=== PATIENT | female | born 1975 | race African-American/Black ===

== ENCOUNTER 2017-07-13 10:28 | Inpatient (IN) | payer OTHER ==
[2017-07-13 11:12] VITALS: BMI 43.7
--- NOTE | 2017-07-13 12:25 | HP ---
COWS - Scale Resting Pulse: 1= ID [id number] Sweatin= Chills/Flushing Restless Observation: 1= Difficult to Sit Still Pupil Size: 0= Normal to Room Light Bone or Joint Aches: 1= Mild Discomfort Runny Nose/ Eye Tearin= Nasal Congestion GI Upset > 30mins: 1= Stomach Cramp Tremor Observation: 1= Tremor [place], Not Seen Yawning Observation: 1= 1-2x During Session Anxiety or Irritability: 1=Feels Anxious/Irritable Goose Flesh Skin: 0=Smooth Skin COWS Score: 9 Admission ROS S - HPI Chief Complaint: I want to be jumpstarted off the meds Allergies/Adverse Reactions: Allergies Allergy/AdvReac Type Severity Reaction Status Date / Time Penicillins Allergy Severe Hives Verified 07/13/17 11:46 History of Present Illness: 41 yo woman here for detox from opiates, also some use of alcohol, cocaine, marijuana but states she just started with the heroin and wants to get off it right away - trying to get a job but marijuana in her system disqualified her. No seizures, previous detox and rehab 2010. Stayed clean for years but off and on relapsed. Exam Limitations: Clinical Condition - Ebola screening Have you traveled outside of the country in the last 21 days: No Have you had contact with anyone from an Ebola affected area: No Have you been sick,other than usual withdrawal symptoms: No Do you have a fever: No - Review of Systems Constitutional: Loss of Appetite, Changes in sleep EENT: reports: Blurred Vision, Nose Congestion Respiratory: reports: No Symptoms reported Cardiac: reports: No Symptoms Reported GI: reports: Nausea, Abdominal cramping : reports: Dysuria Musculoskeletal: reports: Back Pain, Muscle Pain Integumentary: reports: No Symptoms Reported Neuro: reports: Headache Endocrine: reports: No Symptoms Reported Hematology: reports: No Symptoms Reported Psychiatric: reports: Judgement Intact, Mood/Affect Appropiate, Orientated x3, Anxious Other Systems: Reviewed and Negative Patient History - Patient Medical History Hx Asthma: Yes Hx Chronic Obstructive Pulmonary Disease (COPD): No Hx Cancer: No Hx Cardiac Disorders: No Hx Hypertension: No Hx Hypercholesterolemia: No Hx Pacemaker: No HX Cerebrovascular Accident: No Hx Seizures: No Hx Diabetes: No Hx Gastrointestinal Disorders: No Hx Liver Disease: No Hx Genitourinary Disorders: No Hx Sexually Transmitted Disorders: No Hx Renal Disease (ESRD): No Hx Human Immunodeficiency Virus (HIV): No Hx Hepatitis C: No Hx Depression: Yes (hospitalized once, on meds) Hx Suicide Attempt: Yes (years ago) Hx Bipolar Disorder: No Hx Schizophrenia: No - Patient Surgical History Past Surgical History: Yes Hx Abdominal Surgery: Yes (removed gallbladder) Other Surgical History: Hernia repair 11/2016 Anesthesia Reaction: No - PPD History Previous Implant?: Yes Documented Results: Negative w/o proof Implanted On Prior R Admission?: No PPD to be Administered?: Yes - Reproductive History Patient is a Female of Child Bearing Age (11 -55 yrs old): Yes Last Menstrual Period: 06/21/17 Patient : No - Smoking Cessation Smoking history: Current every day smoker Have you smoked in the past 12 months: Yes Aproximately how many cigarettes per day: 20 Initiated information on smoking cessation: Yes 'Breaking Loose' booklet given: 07/13/17 (give on floor) - Substance & Tx. History Hx Alcohol Use: Yes Hx Substance Use: Yes Substance Use Type: Cocaine, Heroin, Marijuana Hx Substance Use Treatment: Yes - Substances Abused Heroin Route: Inhalation Frequency: 3-6 times per week Amount used: 1-2 bags Age of first use: 40 Date of Last Use: 07/12/17 Cocaine Route: Smoking Frequency: 3-6 times per week Amount used: 3-4 bag Age of first use: 16 Date of Last Use: 07/12/17 Alcohol Route: Oral Frequency: 1-2 times per week Amount used: three 22 oz beers Age of first use: 11 Date of Last Use: 07/12/17 Marijuana/Hashish Route: Smoking Frequency: 1-2 times per week Amount used: 1 bag Age of first use: 11 Date of Last Use: 07/12/17 Family Disease History - Family Disease History Family Disease History: Other: Father (, ulcers, ), Mother (, etoh, cirrhosis), Brother (two, living,healthy ), Sister (one, htn, etoh, cirrhosis), Daughter (age 15 , sleep apnea) Admission Physical Exam BHS - Vital Signs Vital Signs: Vital Signs - 24 hr 07/13/17 11:09 Temperature 96.9 F L Pulse Rate 90 Respiratory 20 Rate Blood Pressure 132/82 - Physical General Appearance: Yes: Nourished, Appropriately Dressed, Mild Distress, Obese , Anxious HEENTM: Yes: Hearing grossly Normal, Normocephalic, Normal Voice, Pharynx Normal , Rhinorrhea Respiratory: Yes: Normal Breath Sounds, No Respiratory Distress Neck: Yes: No masses,lesions,Nodules, Supple Breast: Yes: Breast Exam Deferred Cardiology: Yes: Regular Rhythm, Regular Rate Abdominal: Yes: Soft, Protuberent Genitourinary: Yes: Within Normal Limits Back: Yes: Normal Inspection Musculoskeletal: Yes: Back pain, Muscle Pain Extremities: Yes: Normal Inspection, Normal Range of Motion Neurological: Yes: Fully Oriented, Alert, Normal Mood/Affect, Normal Response Integumentary: Yes: Normal Color, Warm Lymphatic: Yes: Within Normal Limits - Diagnostic (1) Uncomplicated opioid dependence Current Visit: Yes Status: Chronic (2) Alcohol abuse Current Visit: Yes Status: Chronic (3) Cocaine dependence Current Visit: Yes Status: Acute Qualifiers: Substance use status: uncomplicated Qualified Code(s): F14.20 - Cocaine dependence, uncomplicated (4) Nicotine dependence Current Visit: Yes Status: Chronic Qualifiers: Nicotine product type: cigarettes Substance use status: uncomplicated Qualified Code(s): F17.210 - Nicotine dependence, cigarettes, uncomplicated (5) Asthma Current Visit: Yes Status: Chronic Qualifiers: Asthma severity: mild intermittent Asthma complication type: uncomplicated Qualified Code(s): J45.20 - Mild intermittent asthma, uncomplicated (6) Marijuana dependence Current Visit: Yes Status: Chronic (7) Obesity, Class III, BMI 40-49.9 (morbid obesity) Current Visit: Yes Status: Chronic Cleared for Admission S - Detox or Rehab [facility] Level of Care: Medically Managed Detox Regimen/Protocol: Methadone [facility] Breath Alcohol Content Breath Alcohol Content: 0 Urine Pregancy Test - Result Urine Test Results: Negative- NO Line Present Urine Drug Screen - Results Drug Screen Negative: No Urine Drug Screen Results: THC-Marijuana, LIBIA-Cocaine, OPI-Opiates
[2017-07-13] MEDS ORDERED: P-EPHED 60MG/TRIPROLIDI 2.5MG TABLET PO PRN (12:33)
[2017-07-13] MEDS ORDERED: guaiFENesin/D-METHORPHAN HB 10 ML UNIT-DOSE CUPS PO PRN (12:33)
[2017-07-13] MEDS ORDERED: MAGNESIUM CITRATE 300 ML BOTTLE PO PRN (12:33)
[2017-07-13] MEDS ORDERED: IBUPROFEN 400 MG TABLET (FP) PO PRN (12:33)
[2017-07-13] MEDS ORDERED: MAG HYDROX/AL HYDROX/SIMETH 30 ML UNIT-DOSE CUP PO PRN (12:33)
[2017-07-13] MEDS ORDERED: hydrOXYzine PAMOATE 50 MG CAPSULE (FP) PO PRN (12:33)
[2017-07-13] MEDS ORDERED: LOPERAMIDE HCL 2 MG CAPSULE PO PRN (12:33)
[2017-07-13] MEDS ORDERED: ACETAMINOPHEN 325 MG TABLET (FP) PO PRN (12:33)
[2017-07-13] MEDS ORDERED: MAGNESIUM HYDROX 2400MG/30ML ORAL SUSPENSION 30 ML CUP PO PRN (12:33)
[2017-07-13] MEDS ORDERED: MENTHOL/PHENOL 1 EACH UD MM PRN (12:33)
[2017-07-13] MEDS ORDERED: METHADONE HCL 10 MG TABLET (FOR DETOX USE ONLY) PO ONE (13:15)
[2017-07-13] MEDS: diazePAM 5 MG TABLET PO PRN ×3 (14:05→22:29)
[2017-07-13] MEDS: NICOTINE 21 MG/24 HOURS TOPICAL PATCH TD SCH ×2 (14:06→18:19)
[2017-07-13 17:32] LABS: URINE APPEARANCE SLCLOUDY; URINE BILIRUBIN NEGATIVE (NEGATIVE); URINE BLOOD 1+ (NEGATIVE); URINE COLOR YELLOW; URINE GLUCOSE (UA) NEGATIVE (NEGATIVE); URINE KETONE NEGATIVE (NEGATIVE); URINE LEUK ESTERASE NEGATIVE (NEGATIVE); URINE NITRITE NEGATIVE (NEGATIVE); URINE PROTEIN NEGATIVE (NEGATIVE); URINE UROBILINOGEN NEGATIVE mg/dL (0.2-1.0)
[2017-07-13 17:42] LABS: URINE MUCUS RARE; URINE RBC 9 /hpf (0-3); URINE WBC <1 /hpf (3-5)
[2017-07-13] MEDS: diphenhydrAMINE HCL 50 MG CAPSULE PO PRN (22:29)
[2017-07-13] MEDS: THIAMINE HCL 100 MG TABLET (FP) PO SCH (22:29)
[2017-07-14] MEDS ORDERED: METHADONE HCL 10 MG TABLET (FOR DETOX USE ONLY) PO ONE (10:00)
[2017-07-14 10:30] LABS: ALBUMIN 3.2 g/dl (3.4-5.0); ALK PHOS 57 U/L (45-117); ANION GAP 9 (8-16); BILIRUBIN,TOTAL 0.2 mg/dL (0.2-1.0); CALCIUM 8.8 mg/dL (8.5-10.1); CO2 25 mmol/L (21-32); CREATININE 0.7 mg/dL (0.55-1.02); GLUCOSE,RANDOM 114 mg/dL (74-106); SGOT/AST 10 U/L (15-37); SGPT/ALT 21 U/L (12-78); TOT PROT 6.8 g/dl (6.4-8.2)
[2017-07-14] MEDS: NICOTINE 21 MG/24 HOURS TOPICAL PATCH TD SCH ×2 (10:34→12:19)
[2017-07-14] MEDS: PRENATAL VITAMINS W/ FOLIC ACID TABLET (FP) PO SCH (10:34)
[2017-07-14] MEDS: diazePAM 5 MG TABLET PO PRN ×3 (10:36→22:16)
[2017-07-14 10:58] LABS: MCH 29.2 pg (25.7-33.7); MCHC 32.2 g/dl (32.0-36.0); MEAN CELL VOLUME 90.6 fl (80-96); MEAN PLT VOLUME 8.2 fl (7.5-11.1); PLATELET COUNT 354 K/MM3 (134-434); WHITE BLOOD COUNT 7.3 K/mm3 (4.0-10.0)
--- NOTE | 2017-07-14 13:57 | EKG ---
Test Reason : Blood Pressure : / mmHG Vent. Rate : 089 BPM Atrial Rate : 089 BPM P-R Int : 152 ms QRS Dur : 080 ms QT Int : 360 ms P-R-T Axes : 065 011 051 degrees QTc Int : 438 ms NORMAL SINUS RHYTHM NORMAL ECG NO PREVIOUS ECGS AVAILABLE Confirmed by SUJATHA ALDRICH, MICHELINE ([id number]) on 07/14/2017 1:56:36 PM Referred By: Confirmed By:MICHELINE SOLARES MD
--- NOTE | 2017-07-14 17:16 | PN ---
BHS COWS - Scale Resting Pulse: 2= [place] 101-120 Sweatin=Flushed/Facial Moisture Restless Observation: 1= Difficult to Sit Still Pupil Size: 0= Normal to Room Light Bone or Joint Aches: 1= Mild Discomfort Runny Nose/ Eye Tearin= Runny Nose/Eyes GI Upset > 30mins: 2= Nausea/Diarrhea Tremor Observation of Outstretched Hands: 2= Slight Tremor Visible Yawning Observation: 0= None Anxiety or Irritability: 2=Irritable/Anxious Goose Flesh Skin: 0=Smooth Skin COWS Score: 14 BHS Progress Note (SOAP) Subjective: Anxiety,sweating,body aches,restless Objective: 07/14/17 17:15 Last Vital Signs Temp Pulse Resp BP Pulse Ox 99 F 107 H 18 141/90 07/14/17 14:41 07/14/17 14:41 07/14/17 14:41 07/14/17 14:41 Laboratory Last Values WBC 7.3 K/mm3 (4.0-10.0) 07/14/17 08:00 RBC 4.32 M/mm3 (3.60-5.2) 07/14/17 08:00 Hgb 12.6 GM/dL (10.7-15.3) 07/14/17 08:00 Hct 39.2 % (32.4-45.2) 07/14/17 08:00 MCV 90.6 fl (80-96) 07/14/17 08:00 MCH 29.2 pg (25.7-33.7) 07/14/17 08:00 MCHC 32.2 g/dl (32.0-36.0) 07/14/17 08:00 RDW 15.0 % (11.6-15.6) 07/14/17 08:00 Plt Count 354 K/MM3 (134-434) 07/14/17 08:00 MPV 8.2 fl (7.5-11.1) 07/14/17 08:00 Sodium 137 mmol/L (136-145) 07/14/17 08:00 Potassium 4.7 mmol/L (3.5-5.1) 07/14/17 08:00 Chloride 103 mmol/L (98-107) 07/14/17 08:00 Carbon Dioxide 25 mmol/L (21-32) 07/14/17 08:00 Anion Gap 9 (8-16) 07/14/17 08:00 BUN 10 mg/dL (7-18) 07/14/17 08:00 Creatinine 0.7 mg/dL (0.55-1.02) 07/14/17 08:00 Creat Clearance w eGFR > 60 (>60) 07/14/17 08:00 Random Glucose 114 mg/dL (74-106) H 07/14/17 08:00 Calcium 8.8 mg/dL (8.5-10.1) 07/14/17 08:00 Total Bilirubin 0.2 mg/dL (0.2-1.0) 07/14/17 08:00 AST 10 U/L (15-37) L 07/14/17 08:00 ALT 21 U/L (12-78) 07/14/17 08:00 Alkaline Phosphatase 57 U/L (45-117) 07/14/17 08:00 Total Protein 6.8 g/dl (6.4-8.2) 07/14/17 08:00 Albumin 3.2 g/dl (3.4-5.0) L 07/14/17 08:00 Urine Color Yellow 07/13/17 15:25 Urine Appearance Slcloudy 07/13/17 15:25 Urine pH 6.0 (5.0-8.0) 07/13/17 15:25 Ur Specific [place] 1.020 (1.005-1.025) 07/13/17 15:25 Urine Protein Negative (NEGATIVE) 07/13/17 15:25 Urine Glucose (UA) Negative (NEGATIVE) 07/13/17 15:25 Urine Ketones Negative (NEGATIVE) 07/13/17 15:25 Urine Blood 1+ (NEGATIVE) H 07/13/17 15:25 Urine Nitrite Negative (NEGATIVE) 07/13/17 15:25 Urine Bilirubin Negative (NEGATIVE) 07/13/17 15:25 Urine Urobilinogen Negative mg/dL (0.2-1.0) 07/13/17 15:25 Ur Leukocyte Esterase Negative (NEGATIVE) 07/13/17 15:25 Urine RBC 9 /hpf (0-3) 07/13/17 15:25 Urine WBC <1 /hpf (3-5) 07/13/17 15:25 Ur Epithelial Cells Moderate /hpf (FEW) 07/13/17 15:25 Urine Mucus Rare 07/13/17 15:25 RPR Titer Nonreactive (NONREACTIVE) 07/14/17 08:00 labs noted Assessment: 07/14/17 17:16 withdrawal sx. Plan: Continue detox
[2017-07-14] MEDS: diphenhydrAMINE HCL 50 MG CAPSULE PO PRN (22:16)
[2017-07-14] MEDS: THIAMINE HCL 100 MG TABLET (FP) PO SCH (22:16)
[2017-07-14] MEDS: ALBUTEROL SO4 6.7 GM HFA INHALER IH PRN (22:18)
--- NOTE | 2017-07-15 09:39 | CONSULT ---
[facility] Psychiatric Consult - Data Date of interview: 07/15/17 Admission source: [facility] Identifying data: This is 41 years old female with history of no psychiatric hospitalization history intoxicated with: Alcohol, Cocaine. Cannabis and Opioids Substance Abuse History: - Smoking Cessation. Smoking history: Current every day smoker. Have you smoked in the past 12 months: Yes. Aproximately how many cigarettes per day: 20. Initiated information on smoking cessation: Yes. ' Breaking Loose' booklet given: 07/13/17 (give on floor). - Substance & Tx. History. Hx Alcohol Use: Yes. Hx Substance Use: Yes. Substance Use Type: Cocaine, Heroin, Marijuana. Hx Substance Use Treatment: Yes. - Substances Abused. Heroin. Route: Inhalation. Frequency: 3-6 times per week. Amount used: 1-2 bags. Age of first use: 40. Date of Last Use: 07/12/17. Cocaine. Route: Smoking. Frequency: 3-6 times per week. Amount used: 3-4 bag. Age of first use: 16. Date of Last Use: 07/12/17. Alcohol. Route: Oral. Frequency: 1-2 times per week. Amount used: three 22 oz beers. Age of first use: 11. Date of Last Use: 07/12/17. Marijuana/Hashish. Route: Smoking. Frequency: 1-2 times per week. Amount used: 1 bag. Age of first use : 11. Date of Last Use: 07/12/17 Medical History: Asthma, Obesity Psychiatric History: Patient reports hbistory of anxitory, depression and insomnia, reports taking prior to admission: Wellbutrin 50mg poqd. Rispedal 1mg po bid. Ambien 10mg po qhs Physical/Sexual Abuse/Trauma History: Denies Additional Comment: Wellbutrin 50mg poqd. Rispedal 1mg po bid. Ambien 10mg po qhs Mental Status Exam - Mental Status Exam Alert and Oriented to: Person Cognitive Function: Fair Patient Appearance: Unkempt Mood: Anxious Affect: Mood Congruent Patient Behavior: Guarded, Cooperative Speech Pattern: Appropriate Voice Loudness: Mildly Loud Thought Process: Goal Oriented Thought Disorder: Being Controlled Hallucinations: Denies Suicidal Ideation: Denies Homicidal Ideation: Denies Insight/Judgement: Fair Sleep: Difficulty falling asleep Appetite: Weight gain Muscle strength/Tone: Mild Hypotonicity Gait/Station: Shuffling Additional Comments: Wellbutrin 50mg poqd. Rispedal 1mg po bid. Ambien 10mg po qhs Psychiatric Findings - Problem List ([place] 1, 2,3) (1) Cocaine dependence Current Visit: Yes Status: Acute Qualifiers: Substance use status: uncomplicated Qualified Code(s): F14.20 - Cocaine dependence, uncomplicated (2) Alcohol abuse Current Visit: Yes Status: Chronic (3) Marijuana dependence Current Visit: Yes Status: Chronic (4) Nicotine dependence Current Visit: Yes Status: Chronic Qualifiers: Nicotine product type: cigarettes Substance use status: uncomplicated Qualified Code(s): F17.210 - Nicotine dependence, cigarettes, uncomplicated (5) Obesity, Class III, BMI 40-49.9 (morbid obesity) Current Visit: Yes Status: Chronic (6) Uncomplicated opioid dependence Current Visit: Yes Status: Chronic (7) Drug-induced mood disorder Current Visit: Yes Status: Acute - Initial Treatment Plan Initial Treatment Plan: Wellbutrin 50mg poqd. Rispedal 1mg po bid. Ambien 10mg po qhs
[2017-07-15] MEDS ORDERED: METHADONE HCL 5 MG TABLET (FOR DETOX USE ONLY) PO ONE (10:00)
[2017-07-15] MEDS: PRENATAL VITAMINS W/ FOLIC ACID TABLET (FP) PO SCH (10:18)
[2017-07-15] MEDS: NICOTINE 21 MG/24 HOURS TOPICAL PATCH TD SCH (10:19)
[2017-07-15] MEDS: ALBUTEROL SO4 6.7 GM HFA INHALER IH PRN (10:21)
--- NOTE | 2017-07-15 10:35 | PN ---
BHS COWS - Scale Resting Pulse: 2= [place] 101-120 Sweatin=Flushed/Facial Moisture Restless Observation: 1= Difficult to Sit Still Pupil Size: 0= Normal to Room Light Bone or Joint Aches: 1= Mild Discomfort Runny Nose/ Eye Tearin= None GI Upset > 30mins: 0= None Tremor Observation of Outstretched Hands: 2= Slight Tremor Visible Yawning Observation: 0= None Anxiety or Irritability: 2=Irritable/Anxious Goose Flesh Skin: 0=Smooth Skin COWS Score: 10 BHS Progress Note (SOAP) Subjective: sweats interrupted sleep agitation Objective: 07/15/17 10:31 Vital Signs Temperature 98.6 F 07/15/17 10:20 Pulse Rate 103 H 07/15/17 10:20 Respiratory Rate 18 07/15/17 10:20 Blood Pressure 121/62 07/15/17 10:20 O2 Sat by Pulse Oximetry (%) Laboratory Tests 07/13/17 07/14/17 07/14/17 15:25 08:00 08:00 WBC 7.3 RBC 4.32 Hgb 12.6 Hct 39.2 MCV 90.6 MCH 29.2 MCHC 32.2 RDW 15.0 Plt Count 354 MPV 8.2 Sodium 137 Potassium 4.7 Chloride 103 Carbon Dioxide 25 Anion Gap 9 BUN 10 Creatinine 0.7 Creat Clearance w eGFR > 60 Random Glucose 114 H Calcium 8.8 Total Bilirubin 0.2 AST 10 L ALT 21 Alkaline Phosphatase 57 Total Protein 6.8 Albumin 3.2 L Urine Color Yellow Urine Appearance Slcloudy Urine pH 6.0 Ur Specific [place] 1.020 Urine Protein Negative Urine Glucose (UA) Negative Urine Ketones Negative Urine Blood 1+ H Urine Nitrite Negative Urine Bilirubin Negative Urine Urobilinogen Negative Ur Leukocyte Esterase Negative Urine RBC 9 Urine WBC <1 Ur Epithelial Cells Moderate Urine Mucus Rare RPR Titer 07/14/17 08:00 WBC RBC Hgb Hct MCV MCH MCHC RDW Plt Count MPV Sodium Potassium Chloride Carbon Dioxide Anion Gap BUN Creatinine Creat Clearance w eGFR Random Glucose Calcium Total Bilirubin AST ALT Alkaline Phosphatase Total Protein Albumin Urine Color Urine Appearance Urine pH Ur Specific [place] Urine Protein Urine Glucose (UA) Urine Ketones Urine Blood Urine Nitrite Urine Bilirubin Urine Urobilinogen Ur Leukocyte Esterase Urine RBC Urine WBC Ur Epithelial Cells Urine Mucus RPR Titer Nonreactive awake/alert ambulating no acute distress Assessment: 07/15/17 10:34 mild withdrawal sx Plan: continue detox increase fluids d/c in am
[2017-07-15] MEDS: diazePAM 5 MG TABLET PO PRN ×2 (17:39→22:35)
[2017-07-15] MEDS: THIAMINE HCL 100 MG TABLET (FP) PO SCH (22:35)
[2017-07-15] MEDS: diphenhydrAMINE HCL 50 MG CAPSULE PO PRN (22:35)
[2017-07-16 07:29] VITALS: BP 136/82; PULSE 106; TEMP 98.2
--- NOTE | 2017-07-16 08:46 | DS ---
[facility] Detox Discharge Summary Admission Date: 07/13/17 Discharge Date: 07/16/17 - History Present History: Alcohol Dependence, Cannabis Dependence, Cocaine Dependence - Physical Exam Results Vital Signs: Vital Signs Temperature 98.2 F 07/16/17 07:29 Pulse Rate 106 H 07/16/17 07:29 Respiratory Rate 20 07/16/17 07:29 Blood Pressure 136/82 07/16/17 07:29 O2 Sat by Pulse Oximetry (%) - Treatment Hospital Course: Detox Protocol Followed, Detoxed Safely, Responded well, Discharged Condition Good, Rehab Referral Accepted - Medication Discharge Medications: Ambulatory Orders Albuterol Sulfate Inhaler - [Ventolin HFA Inhaler -] 2 puff IH TID PRN 07/13/17 Clonazepam [Klonopin] 2 mg PO BID 07/13/17 Naltrexone HCl 50 mg PO DAILY 07/13/17 Risperidone [Risperdal] 1 mg PO BID 07/13/17 Wellbutrin - 50 mg PO DAILY 07/13/17 - Diagnosis (1) Cocaine dependence Current Visit: Yes Status: Chronic Qualifiers: Substance use status: uncomplicated Qualified Code(s): F14.20 - Cocaine dependence, uncomplicated (2) Drug-induced mood disorder Current Visit: Yes Status: Chronic (3) Alcohol abuse Current Visit: Yes Status: Chronic (4) Asthma Current Visit: Yes Status: Chronic Qualifiers: Asthma severity: mild intermittent Asthma complication type: uncomplicated Qualified Code(s): J45.20 - Mild intermittent asthma, uncomplicated (5) Marijuana dependence Current Visit: Yes Status: Chronic (6) Nicotine dependence Current Visit: Yes Status: Chronic Qualifiers: Nicotine product type: cigarettes Substance use status: uncomplicated Qualified Code(s): F17.210 - Nicotine dependence, cigarettes, uncomplicated (7) Obesity, Class III, BMI 40-49.9 (morbid obesity) Current Visit: Yes Status: Chronic (8) Uncomplicated opioid dependence Current Visit: Yes Status: Chronic - AMA Did Patient Leave Against Medical Advice: No
[2017-07-16] MEDS: PRENATAL VITAMINS W/ FOLIC ACID TABLET (FP) PO SCH (09:12)
[2017-07-16] MEDS: NICOTINE 21 MG/24 HOURS TOPICAL PATCH TD SCH (09:13)
== END 2017-07-16 09:30 | disposition home or self-care (01) | DRG 773 ==
LOC: YASAS 10:28 → Y6N 12:22
PROVIDERS: ADMIT Internal Medicine; ATTEND Internal Medicine
PROC: HZ2ZZZZ Detoxification Services for Substance Abuse Treatment (ICD-10-PCS; principal; 2017-07-13)
DX: F11.23 Opioid dependence with withdrawal (principal); F14.20 Cocaine dependence, uncomplicated; F12.20 Cannabis dependence, uncomplicated; F10.10 Alcohol abuse, uncomplicated; F17.210 Nicotine dependence, cigarettes, uncomplicated; F19.24 Other psychoactive substance dependence with psychoactive substance-induced mood disorder; J45.20 Mild intermittent asthma, uncomplicated; E66.01 Morbid (severe) obesity due to excess calories; Z68.41 Body mass index [BMI] 40.0-44.9, adult; Z88.0 Allergy status to penicillin; Z91.5 Personal history of self-harm
CPT/HCPCS: 36415; 80053; 81003; 81015; 85027; 86593; 93005; 93010